=== PATIENT | female | born 1985 | race Two or more races ===

== ENCOUNTER 2023-03-15 23:20 | Emergency (ER) | payer MEDICAID, OTHER ==
[~2023-03-15] VITALS: Ht 157.5 cm; Wt 90.6 kg
[2023-03-15 23:48] VITALS: BP 132/85; PULSE 96; RESP 16; O2SAT 98
[2023-03-16 01:48] LABS: Basophils # (auto) 0 10 ^3/uL (0-0.2); Basophils % (auto) 0.3 % (0.0-2.0); Eosinophils # (auto) 0 10 ^3/uL (0-0.8); Eosinophils % (auto) 0.3 % (0.0-7.0); Hematocrit 41.1 % (36.0-46.0); Hemoglobin 14.1 g/dL (12.2-16.2); Lymphocytes % (auto) 17.3 % (10.0-50.0); Mean Corpuscular Hemoglobin 28.1 pg (28.0-32.0); Mean Corpuscular Hgb Conc. 34.3 g/dL (32.0-36.0); Mean Corpuscular Volume 81.8 fL (80.0-100.0); Monocytes # (auto) 0.8 10 ^3/uL (0-1.3); Neutrophils # (auto) 8.9 10 ^3/uL (1.6-8.6); Neutrophils % (auto) 75.1 % (37.0-80.0); Red Blood Cells 5.02 10^6/uL (4.0-5.20); White Blood Cell 11.9 10^3/uL (4.4-10.8)
[2023-03-16 02:05] LABS: Albumin 3.9 g/dL (3.4-5.0); BUN/Creatinine Ratio 9.2 (10.0-20.0); Potassium 3.9 mmol/L (3.5-5.1)
[2023-03-16 02:14] LABS: Bilirubin, Total 0.8 mg/dL (0.2-1.0); Total Protein 7.5 g/dL (6.4-8.2)
== END 2023-03-16 07:23 | disposition left against medical advice (07) ==
LOC: ER 23:29
DX: R51.9 Headache, unspecified (principal); R11.2 Nausea with vomiting, unspecified; Z53.21 Procedure and treatment not carried out due to patient leaving prior to being seen by health care provider
CPT/HCPCS: 36415; 70450; 80053; 82962; 84484; 85025